=== PATIENT | female | born 1995 | race Caucasian/White ===

== ENCOUNTER → 2025-02-01 11:23 | Outpatient (REF) | payer BC, SELFPAY | LOC: PNTC 11:23 | PROVIDERS: ATTENDING PHYSICIAN Obstetrics & Gynecology | DX: O34.219 Maternal care for unspecified type scar from previous cesarean delivery (principal); Z87.59 Personal history of other complications of pregnancy, childbirth and the puerperium; Z87.51 Personal history of pre-term labor | CPT/HCPCS: 76805 ==

== ENCOUNTER → 2025-03-22 14:07 | Outpatient (REF) | payer BC, SELFPAY | LOC: PNTC 14:07 | PROVIDERS: ATTENDING PHYSICIAN Student in an Organized Health Care Education/Training Program | DX: O13.9 Gestational [pregnancy-induced] hypertension without significant proteinuria, unspecified trimester (principal); O09.219 Supervision of pregnancy with history of pre-term labor, unspecified trimester; O34.219 Maternal care for unspecified type scar from previous cesarean delivery | CPT/HCPCS: 76815 ==

== ENCOUNTER → 2025-05-24 13:04 | Outpatient (REF) | payer BC, SELFPAY | LOC: PNTC 13:04 | PROVIDERS: ATTENDING PHYSICIAN Obstetrics & Gynecology | DX: O14.00 Mild to moderate pre-eclampsia, unspecified trimester (principal) | CPT/HCPCS: 59025; 76816 ==

== ENCOUNTER → 2025-05-31 11:03 | Outpatient (REF) | payer BC, SELFPAY | LOC: PNTC 11:03 | PROVIDERS: ATTENDING PHYSICIAN Obstetrics & Gynecology | DX: O13.9 Gestational [pregnancy-induced] hypertension without significant proteinuria, unspecified trimester (principal) | CPT/HCPCS: 36415; 59025; 76815; 86850; 86900; 86901; 96372; J2790 ==

== ENCOUNTER → 2025-06-07 11:32 | Outpatient (REF) | payer BC, SELFPAY | LOC: PNTC 11:32 | PROVIDERS: ATTENDING PHYSICIAN Obstetrics & Gynecology | DX: O13.9 Gestational [pregnancy-induced] hypertension without significant proteinuria, unspecified trimester (principal) | CPT/HCPCS: 59025; 76815 ==

== ENCOUNTER → 2025-06-14 12:02 | Outpatient (REF) | payer BC, SELFPAY | LOC: PNTC 12:02 | PROVIDERS: ATTENDING PHYSICIAN Obstetrics & Gynecology | DX: O14.90 Unspecified pre-eclampsia, unspecified trimester (principal) | CPT/HCPCS: 59025; 76815 ==

== ENCOUNTER → 2025-06-21 11:07 | Outpatient (REF) | payer BC, SELFPAY | LOC: PNTC 11:07 | PROVIDERS: ATTENDING PHYSICIAN Obstetrics & Gynecology | DX: O13.9 Gestational [pregnancy-induced] hypertension without significant proteinuria, unspecified trimester (principal) | CPT/HCPCS: 59025; 76816 ==

== ENCOUNTER → 2025-06-28 11:20 | Outpatient (REF) | payer BC, SELFPAY | LOC: PNTC 11:20 | PROVIDERS: ATTENDING PHYSICIAN Obstetrics & Gynecology | DX: Z87.59 Personal history of other complications of pregnancy, childbirth and the puerperium (principal) | CPT/HCPCS: 59025; 76815 ==

== ENCOUNTER → 2025-07-05 11:28 | Outpatient (REF) | payer BC, SELFPAY | LOC: PNTC 11:28 | PROVIDERS: ATTENDING PHYSICIAN Obstetrics & Gynecology | DX: Z87.59 Personal history of other complications of pregnancy, childbirth and the puerperium (principal) | CPT/HCPCS: 59025; 76815 ==

== ENCOUNTER → 2025-07-12 11:09 | Outpatient (REF) | payer BC, SELFPAY | LOC: PNTC 11:09 | PROVIDERS: ATTENDING PHYSICIAN Obstetrics & Gynecology | DX: Z87.59 Personal history of other complications of pregnancy, childbirth and the puerperium (principal) | CPT/HCPCS: 59025; 76815 ==

== ENCOUNTER 2025-07-19 12:36 | Inpatient (IN) | payer BC, SELFPAY ==
[2025-07-19 13:06] VITALS: BP 125/76; BMI 32.9
[2025-07-19] MEDS: LR 1000 IV (13:20)
[2025-07-19 13:30] LABS: Hematocrit 33.4 % (37.0-47.0); Hemoglobin 10.9 g/dL (12.0-16.0); Mean Corp Hgb Conc. 32.6 g/dL (33.0-37.0); Mean Corpuscular Volume 94.1 fL (81.0-99.0); Platelet Count 193 10^3/uL (130-400); Red Cell Dist. Width 13.2 % (11.5-14.5)
[2025-07-19] MEDS: TYLENOL 975 MG PO (13:41)
[2025-07-19] MEDS: BICITRA 30 ML PO (13:42)
[2025-07-19] MEDS: ANCEF 10 IV (13:42)
[2025-07-19 14:59] LABS: Cord VBG B.E. - POC 0.7 mmol/L; Cord VBG HCO3 - POC 26 mmol/L; Cord VBG O2 Sat % - POC 51.9 %; Cord VBG pCO2 - POC 43 mmHg; Cord VBG pH - POC 7.39; Cord VBG pO2 - POC 28 mmHg
[2025-07-19] MEDS: TORADOL 15 MG IV (17:45)
[2025-07-19] MEDS: COLACE 100 MG PO (20:15)
[2025-07-20] MEDS: TORADOL 15 MG IV ×3 (00:03→11:49)
[2025-07-20 06:23] LABS: Hematocrit 28.6 % (37.0-47.0); Hemoglobin 9.5 g/dL (12.0-16.0); Mean Corp Hgb Conc. 33.2 g/dL (33.0-37.0); Mean Corpuscular Volume 89.9 fL (81.0-99.0); Platelet Count 203 10^3/uL (130-400); Red Cell Dist. Width 13.2 % (11.5-14.5)
[2025-07-20] MEDS: FEOSOL 325 MG PO (08:18)
[2025-07-20] MEDS: COLACE 100 MG PO ×2 (08:18→20:33)
[2025-07-20] MEDS: PRENATAL PLUS 1 TABLET PO (08:18)
--- NOTE | 2025-07-20 10:41 | W.PN.ANS.POP ---
Anesthesia Post Operative
- Anesthesia Post Op Note
Vital Signs Stable-See Nursing Note: Yes
Airway Patent: Yes
Adequate Pain Control: Yes
Change in Mental Status: No
Current Postoperative Nausea & Vomiting: No
Anesthesia Complications: No
General Anesthetic Recall: No
Unplanned Admission: No
Post Op Hydration Adequate: Yes
[2025-07-20] MEDS: RHOGAM 300 MCG IM (11:32)
[2025-07-20 13:33] LABS: Syphilis/T. pallidum Ab Reflex Negative (Negative)
[2025-07-20] MEDS: MOTRIN 600 MG PO (18:19)
[2025-07-20] MEDS: TYLENOL 650 MG PO (18:22)
[2025-07-21] MEDS: TYLENOL 650 MG PO ×3 (00:28→19:50)
[2025-07-21] MEDS: MOTRIN 600 MG PO ×4 (00:29→19:50)
[2025-07-21] MEDS: COLACE 100 MG PO ×2 (08:30→19:50)
[2025-07-21] MEDS: PRENATAL PLUS 1 TABLET PO (08:30)
[2025-07-21] MEDS: FEOSOL 325 MG PO (08:30)
[2025-07-22] MEDS: MOTRIN 600 MG PO (03:36)
[2025-07-22] MEDS: TYLENOL 650 MG PO (03:36)
[2025-07-22] MEDS: FEOSOL 325 MG PO (08:09)
[2025-07-22] MEDS: COLACE 100 MG PO (08:09)
[2025-07-22] MEDS: PRENATAL PLUS 1 TABLET PO (08:09)
[2025-07-24 11:54] LABS: Cord ABG B.E. - POC -0.9 mmol/L; Cord ABG HCO3 - POC 28 mmol/L; Cord ABG pCO2 - POC 65 mmHg; Cord ABG pH - POC 7.25; Cord ABG pO2 - POC < 18 mmHg
== END 2025-07-22 11:45 | disposition home or self-care (01) | DRG 784 ==
LOC: LDRP 12:36
PROVIDERS: Student in an Organized Health Care Education/Training Program; ADMITTING PHYSICIAN Obstetrics & Gynecology
PROC: 0UT60ZZ Resection of Left Fallopian Tube, Open Approach (ICD-10-PCS; 2025-07-19)
PROC: 10D00Z1 Extraction of Products of Conception, Low, Open Approach (ICD-10-PCS; 2025-07-19)
PROC: 3E0234Z Introduction of Serum, Toxoid and Vaccine into Muscle, Percutaneous Approach (ICD-10-PCS; 2025-07-20)
DX: O48.0 Post-term pregnancy (principal); O41.03X0 Oligohydramnios, third trimester, not applicable or unspecified; Z3A.40 40 weeks gestation of pregnancy; O34.211 Maternal care for low transverse scar from previous cesarean delivery; O69.81X0 Labor and delivery complicated by cord around neck, without compression, not applicable or unspecified; Z37.0 Single live birth; Z90.79 Acquired absence of other genital organ(s)
CPT/HCPCS: 58605; 59025; 76816; 85027; 85461; 86780; 86850; 86870; 86900; 86901; 88302; 88307; J2790